=== PATIENT | male | born 1985 | race Caucasian/White ===

== ENCOUNTER 2018-07-03 20:17 | Emergency (ER) | payer SELFPAY ==
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
[2018-07-03] MEDS ORDERED: ALPRAZolam 1 MG Tab PO ONE ×3 (21:44→22:11)
== END 2018-07-03 22:13 | disposition home or self-care (01) ==
LOC: JD.ED 20:17
DX: Z76.0 Encounter for issue of repeat prescription (principal); F41.9 Anxiety disorder, unspecified; F17.210 Nicotine dependence, cigarettes, uncomplicated; Z79.899 Other long term (current) drug therapy
CPT/HCPCS: 99281; A9270; 99283